=== PATIENT | male | born 1980 | race American Indian/Alaskan Native ===

== ENCOUNTER 2017-10-28 22:54 | Emergency (ER) | payer BC ==
--- NOTE | 2017-10-28 23:34 | Emergency Department Report ---
ED Chest Pain HPI - General Chief Complaint: Chest Pain Stated Complaint: CHEST PAIN Time Seen by Provider: 10/28/17 23:22 Source: patient, EMS Mode of arrival: Stretcher Limitations: No Limitations - History of Present Illness Initial Comments: There is atraumatic presents to ED with complaints of chest pain. States pain started approximately 1.5 hours ago while at rest. Reports throbbing pain in left chest. Girlfriend states after patient's chest pain started, he began to hyperventilate, so she gave him 1 SL nitroglycerin, states patient then passed out briefly. EMS was called patient was given aspirin. Patient denies shortness of breath and diaphoresis. Reports nausea, no vomiting. Patient reports history of ME years ago, denies stent placement. MD Complaint: chest pain -: hour(s) (1.5) Onset: during rest Pain Location: left chest Pain Radiation: none Severity: moderate Quality: other (throbbing) Consistency: other (improved) Improves With: nitroglycerin Worsens With: nothing re: nausea. denies: vomting, diaphoresis, dyspnea Treatments Prior to Arrival: aspirin, nitroglycerin - Related Data Allergies Allergy/AdvReac Type Severity Reaction Status Date / Time No Known Allergies Allergy Unverified 10/28/17 23:16 Heart Score - HEART Score History: Highly suspicious EKG: Non-specific Age: < 45 Risk factors: 1-2 risk factors Troponin: < normal limit HEART Score: 4 - Critical Actions Critical Actions: 4-6 pts:12-16.6% risk of adverse cardiac event. Should be admitted ED Review of Systems ROS: Stated complaint: CHEST PAIN Other details as noted in HPI Comment: All other systems reviewed and negative Constitutional: denies: fever Respiratory: denies: shortness of breath Cardiovascular: chest pain Gastrointestinal: nausea. denies: vomiting ED Past Medical Hx - Past Medical History Previous Medical History?: Yes Hx Hypertension: Yes Hx Heart Attack/AMI: Yes (2014) Hx Congestive Heart Failure: Yes - Surgical History Past Surgical History?: No - Social History Smoking Status: Never Smoker Substance Use Type: Alcohol ED Physical Exam - General Limitations: No Limitations General appearance: alert, in no apparent distress - Head Head exam: Present: atraumatic, normocephalic - Eye Eye exam: Present: normal appearance - Neck Neck exam: Present: normal inspection - Respiratory Respiratory exam: Present: normal lung sounds bilaterally. Absent: respiratory distress - Cardiovascular Cardiovascular Exam: Present: regular rate, normal rhythm - GI/Abdominal GI/Abdominal exam: Present: soft. Absent: tenderness - Extremities Exam Extremities exam: Present: normal inspection. Absent: pedal edema - Neurological Exam Neurological exam: Present: alert, oriented X3 - Psychiatric Psychiatric exam: Present: normal mood, flat affect - Skin Skin exam: Present: warm, dry, intact, normal color ED Course Vital Signs 10/28/17 10/29/17 10/29/17 23:05 00:28 00:30 Temperature 97.8 F Pulse Rate 73 89 91 H Respiratory 14 18 Rate Blood Pressure 138/80 139/91 Blood Pressure [Right] O2 Sat by Pulse 98 95 Oximetry 10/29/17 10/29/17 10/29/17 00:31 01:00 01:30 Temperature Pulse Rate 78 73 68 Respiratory 14 14 20 Rate Blood Pressure 146/74 127/86 Blood Pressure 147/89 [Right] O2 Sat by Pulse 97 95 97 Oximetry 10/29/17 10/29/17 02:00 02:31 Temperature Pulse Rate 67 75 Respiratory 15 19 Rate Blood Pressure 139/70 140/78 Blood Pressure [Right] O2 Sat by Pulse 95 99 Oximetry ED Medical Decision Making - Lab Data Result diagrams: 10/28/17 23:28 10/28/17 23:28 - EKG Data -: EKG Interpreted by Me EKG shows normal: sinus rhythm, axis, QRS complexes Rate: normal - EKG Data Interpretation: other (abnormal, old inferior infarct, T wave inversions laterally) 10/28/17 23:36 Twave inversions in lateral leads - Medical Decision Making 37-year-old male with history of CAD questionable CHF here with chest pain. EKG abnormal with lateral T-wave inversions. Creatinine shows renal insufficiency which is chronic per patient. Patient required another sublingual nitroglycerin here in ED for relief of chest pain. Patient comfortable at this time. Troponin normal. Recommend admission for patient due to character of pain, which he reports felt the same as when he had a previous ME, and past medical history. Patient refuses admission. 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 Risks explained to patient including heart attack, cardiac arrest. Patient understands. Girlfriend at bedside. Advised to return to emergency room if anything changes symptoms worsen. Patient to leave AMA. - Differential Diagnosis ACS, pulm edema, chest wall pain Critical care attestation.: If time is entered above; I have spent that time in minutes in the direct care of this critically ill patient, excluding procedure time. ED Disposition Clinical Impression: Chest pain Disposition: DC-07 LEFT AGAINST MED ADVICE Is pt being admited?: No Condition: Stable Instructions: Chest Pain (ED) Referrals: PRIMARY CARE,MD [Primary Care Provider] - 3-5 Days Forms: AMA Form, Work/School Release Form(ED) Time of Disposition: 02:38
[2017-10-28 23:45] LABS: Basophils # (Auto) 0.2 K/mm3 (0.0-0.1); Eosinophils # (Auto) 0.3 K/mm3 (0.0-0.4); Eosinophils % (Auto) 4.2 % (0.0-4.3); Hematocrit 38.8 % (35.5-45.6); Lymphocytes # (Auto) 2.3 K/mm3 (1.2-5.4); Lymphocytes % (Auto) 28.8 % (13.4-35.0); Mean Corpuscular HGB Conc 34 % (32-34); Mean Corpuscular Hemoglobin 29 pg (28-32); Mean Corpuscular Volume 85 fl (84-94); Monocytes # (Auto) 0.6 K/mm3 (0.0-0.8); Monocytes % (Auto) 7.2 % (0.0-7.3); Platelet Count 208 K/mm3 (140-440); Red Blood Count 4.58 M/mm3 (3.65-5.03); Red Cell Distribution Width 14.1 % (13.2-15.2)
[2017-10-28 23:55] LABS: INR 0.97 (0.87-1.13)
[2017-10-28 23:56] LABS: Partial Thromboplastin Time 27.5 Sec. (24.2-36.6)
[2017-10-29 00:02] LABS: BUN/Creatinine Ratio 12; Blood Urea Nitrogen 27 mg/dL (9-20); Calcium 10.1 mg/dL (8.4-10.2); Hemolysis Index 20
[2017-10-29] MEDS ORDERED: NITROSTAT SL PRN (00:22)
--- NOTE | 2017-10-29 00:28 | XRay Report ---
FINAL REPORT EXAM: XR CHEST 1V AP HISTORY: chest pain TECHNIQUE: A portable upright view the chest was obtained. FINDINGS: The heart size and vascularity appear normal. The lungs are clear. Pleural fluid is not seen. The bones soft tissues appear well maintained. IMPRESSION: No acute cardiopulmonary process.
[2017-10-29 02:49] VITALS: BP 140/78
== END 2017-10-29 02:49 | disposition left against medical advice (07) ==
LOC: ED 22:54
DX: R07.89 Other chest pain (principal); I10 Essential (primary) hypertension; I50.9 Heart failure, unspecified; I21.9 Acute myocardial infarction, unspecified
CPT/HCPCS: 36415; 71045; 80048; 84484; 85025; 85610; 85730; 93005; 93010

== ENCOUNTER 2020-01-12 08:32 | Day surgery (SDC) | payer BC ==
[~2020-01-12 08:32] MED LIST: SODIUM CHLORIDE 0.9% 1000 ML 1,000 ML IV SCH
--- NOTE | 2020-01-12 10:04 | Anesthesia Day of Surgery ---
Anesthesia Day of Surgery - Day of Surgery Patient Examined: Yes Patient H&P Reviewed: Yes Patient is NPO: Yes
--- NOTE | 2020-01-12 10:07 | Anesthesia Consultation ---
Anesthesia Consult and Med Hx Date of service: 01/12/20 - Airway Anesthetic Teeth Evaluation: Good ROM Head & Neck: Adequate Mental/Hyoid Distance: Adequate Mallampati Class: Class III Intubation Access Assessment: Probably Good - Pre-Operative Health Status ASA Pre-Surgery Classification: ASA3 Proposed Anesthetic Plan: MAC - Pulmonary Hx Smoking: Yes Hx Sleep Apnea: Yes (Going to be tested) - Cardiovascular System Hx Hypertension: Yes Hx Heart Attack/AMI: Yes (2015. "early" CHF. States he can climb 2FS) - Central Nervous System Hx Psychiatric Problems: Yes (Anxious) - Gastrointestinal Hx Gastroesophageal Reflux Disease: Yes - Endocrine Hx Renal Disease: Yes (CKD) - Hematic Hx Sickle Cell Disease: No - Other Systems Hx Obesity: Yes (Morbid)
[2020-01-12] MEDS ORDERED: LIDOCAINE MPF (2%) 20 MG/1 ML VIAL 5 ML ONE ×2 (10:12)
[2020-01-12] MEDS ORDERED: propofoL 200 MG/20 ML VIAL IV ONE ×2 (10:13→10:53)
[2020-01-12] MEDS ORDERED: fentaNYL 100 MCG/2 ML INJ ONE (10:22)
--- NOTE | 2020-01-12 11:05 | Short Stay Summary ---
Short Stay Documentation Date of service: 01/12/20 Narrative H&P: The patient presents for diagnostic colonoscopy for severe and progressive constipation. - History Past Medical History: GERD, heart failure, hypertension, other (CKD) Past Surgical History: No surgical history Social history: no significant social history - Allergies and Medications Current Medications: Allergies prednisone Allergy (Verified 01/11/20 10:45) Unknown Home Medications Medication Instructions Recorded Confirmed Last Taken Type Furosemide [Lasix TAB] 80 mg PO DAILY 01/12/20 01/12/20 01/08/20 History Linaclotide [Linzess] 145 mcg PO QDAY 01/12/20 01/12/20 01/07/20 History Pantoprazole Sodium 1 tab PO DAILY 01/12/20 01/12/20 01/10/20 13:00 History Sacubitril/Valsartan [Entresto 97 1 each PO DAILY 01/12/20 01/12/20 01/08/20 11:00 History mg-103 mg Tablet] carvediloL [Coreg] 12.5 mg PO BID 01/12/20 01/12/20 01/12/20 06:00 History Active Medications Sodium Chloride (Nacl 0.9% 1000 Ml) 1,000 mls @ 50 mls/hr IV DIRECT FLAKITA - Physical exam General appearance: no acute distress, well-nourished, obese Integumentary: no rash, no growths, no abnormal pigmentation HEENT: Atraumatic, PERRLA, EOMI, Mucous membr. moist/pink Lungs: Clear to auscultation, Normal air movement Breasts: deferred Heart: Regular rate, Normal S1, Normal S2, No murmurs Gastrointestinal: normoactive bowel sounds, no tenderness, no distended, no masses, no guarding, no organomegaly, obese Male Genitourinary: deferred Rectal Exam: normal exam-external/orifice, no mass Extremities: no ischemia, pulses intact, pulses symmetrical, No edema, normal temperature, normal color, Full ROM Neurological: Normal gait, Normal speech, Strength at 5/5 X4 ext, Normal tone, Sensation intact, Cranial nerves 3-12 NL - Brief post op/procedure progress note Date of procedure: 01/12/20 Procedure: see dictation Findings: see dictation Estimated blood loss: none Pathology: list (rectal polyp) Specimen disposition: to lab Condition: stable - Disposition Condition at discharge: Good Disposition: DC-01 TO HOME OR SELFCARE - Discharge Diagnoses (1) Constipation Status: Acute Short Stay Discharge Plan Activity: other (No driving for 24 hours) Weight Bearing Status: Full Weight Bearing Diet: regular Follow up with: PRIMARY CARE, [Primary Care Provider] - 7 Days
--- NOTE | 2020-01-12 11:08 | Operative Report ---
Operative Report Operative Report: Date of procedure: 01/12/2020 Preprocedure diagnosis: Severe progressive constipation Post procedure diagnosis: Diminutive rectal polyp, otherwise normal study Procedure: Colonoscopy to the cecum with cold snare polypectomy Endoscopist: Dr. Khoury Anesthesia: Monitored anesthesia care per anesthesia department Estimated blood loss: 0 Medications: Monitored anesthesia care. See separate report by anesthesia for details. After careful discussion of the nature and purpose of the procedure as well as details of the technique risks benefits and alternatives the patient gave consent. Please see recent history and physical from the office. The patient was placed in the left lateral decubitus position and medicated per anesthesia. A rectal exam was performed sphincter tone was normal there were no masses palpable. The Filao 570 scope was passed transanally and advanced under continuous direct vision without difficulty to the cecum. The colon was well prepared. The cecum was normal. The ascending colon was normal and on forward and retroflexed views. The transverse colon, descending colon, and sigmoid colon were normal. The rectum revealed a 5 mm sessile erythematous polyp. The polyp was removed completely with the cold snare and retrieved by suction. The rectum otherwise was normal on forward and retroflexed views. The procedure was well- tolerated overall and the patient was observed in recovery. Conclusions: Diminutive rectal polyp, otherwise normal study. Plan: Await pathology. Follow-up colonoscopy in 5 to 10 years depending upon the pathology. Patient is to call the office in 10 days. Signed electronically: Sebastián Khoury M.D.
[2020-01-12 11:33] VITALS: BP 134/84
--- NOTE | 2020-01-12 12:05 | Post Anesthesia Evaluation ---
- Post Anesthesia Evaluation Patient Participated: Yes Airway Patent: Yes Stable Respiratory Function: Yes Nausea/Vomiting: No Temp > 96.8F: Yes Pain Manageable: Yes Adequeate Hydration: Yes Anesthesia Complications: No Block Receding Appropriately: Not Applicable Patient on Ventilator: No
== END 2020-01-12 08:33 | disposition home or self-care (01) ==
LOC: GIO 08:32
PROVIDERS: ATTEND Internal Medicine Gastroenterology
DX: K59.00 Constipation, unspecified (principal); D12.2 Benign neoplasm of ascending colon; G47.30 Sleep apnea, unspecified; K21.9 Gastro-esophageal reflux disease without esophagitis; I13.0 Hypertensive heart and chronic kidney disease with heart failure and stage 1 through stage 4 chronic kidney disease, or unspecified chronic kidney disease; N18.9 Chronic kidney disease, unspecified; I50.9 Heart failure, unspecified; E66.9 Obesity, unspecified; Z98.890 Other specified postprocedural states; Z88.8 Allergy status to other drugs, medicaments and biological substances; Z79.899 Other long term (current) drug therapy; Z87.891 Personal history of nicotine dependence; Z68.41 Body mass index [BMI] 40.0-44.9, adult
CPT/HCPCS: 45385; 88305; J2704; J3010